=== PATIENT | female | born 1955 | race Caucasian/White ===

== ENCOUNTER 2019-03-22 11:12 | Emergency (ER) | payer OTHER ==
[~2019-03-22] VITALS: Wt 73.6 kg
[2019-03-22 11:15] VITALS: BP 171/79; PULSE 66; RESP 20
[2019-03-22] MEDS ORDERED: CELE100C PO (12:26)
--- NOTE | 2019-03-22 12:29 | ERD ---
ER Documentation Chief Complaint Chief Complaint l. leg pain , denies trauma HPI 63-year-old female presents the emergency department complaining of left knee pain times over 1 month. Patient states that she is had knee pain for over a month. She denies any trauma. She states that she is been seen in the emergency department in the last week or 2. She had x-rays performed that are normal as well as an ultrasound of her leg that was negative for DVT. She reports that she continues to have isolated left knee pain. She has no significant difficulty ambulate in. She reports no fevers, chills, redness, numbness, tingling. ROS All systems reviewed and are negative except as per history of present illness. Medications Home Meds Active Scripts Celecoxib* (Celebrex*) 100 Mg Capsule, 100 MG PO BID, #30 CAP Prov:MARIA ALEJANDRA NASH 03/22/19 Physical Exam Vitals Vital Signs Date Temp Pulse Resp B/P (MAP) Pulse Ox O2 O2 Flow FiO2 Time Delivery Rate 03/22/19 98.0 66 20 171/79 97 11:15 (109) Physical Exam General: well developed, well nourished, in no distress. Neuro: Normal speech, gait, balance Extremity: Left leg, which is the area the concern has mild effusion about the left knee. There is mild joint tenderness laterally but not medially. There is no crepitus noted. There is normal range of motion. Patient has no evidence of infection and is neurovascular intact distally. Procedures/MDM Patient was taken to a room, seen and examined Medical decision m[age]-year-old female presents emergency room with what appears to be a chronic arthritis of her left knee. She has no evidence of trauma and is already had x-rays performed at an outside emergency department that are normal. She has no evidence of DVT based on ultrasound that was just performed within a week or 2. Overall, this appears to be a clinical type arthritis and will be treated with outpatient anti-inflammatories. She is been referred back to her primary care doctor for further follow-up as well as consideration of MRI. Departure Diagnosis: Primary Impression: Knee pain Condition: Stable Patient Instructions: Knee Pain, Uncertain Cause Additional Instructions: Consulte a becker mdico para el seguimiento segn lo discutido. Lleve dee copia de los resultados de becker prueba, si corresponde, a esta visita de seguimiento. Consulte a becker mdico o regrese aqu si steve sntomas no mejoran chaitanya se esperaba. En cualquier momento, regrese al departamento de emergencias por cualquier cambi o o empeoramiento en steve sntomas. MARIA ALEJANDRA NASH Mar 22, 2019 12:29
== END 2019-03-22 13:10 | disposition home or self-care (01) ==
LOC: FTE 11:12
DX: M25.562 Pain in left knee (principal)
CPT/HCPCS: 99283